=== PATIENT | male | born 1960 | race Caucasian/White ===

== ENCOUNTER 2019-07-25 12:01 | Emergency (ER) | payer SELFPAY ==
[~2019-07-25] VITALS: Ht 185.4 cm; Wt 81.6 kg
--- NOTE | 2019-07-25 12:20 | NUR ---
[id number], from the street, flu like symptoms x 3-4 days. DENIES PAIN. DENIES SOB, DIZZINESS, WEAKNESS, N/V. AOX4, VSS, RR EVEN AND UNLABORED. MADE COMFORTABLE AND READY FOR EVAL.
[2019-07-25] MEDS ORDERED: IBUPROFEN 400 MG TABLET ONE (12:28)
[2019-07-25] MEDS ORDERED: ACETAMINOPHEN ES 500 MG TABLET ONE (12:28)
[2019-07-25] MEDS ORDERED: IBUPROFEN 400 MG TABLET PO ONE (12:30)
[2019-07-25] MEDS ORDERED: ACETAMINOPHEN ES 500 MG TABLET PO ONE (12:30)
--- NOTE | 2019-07-25 13:48 | NUR ---
Patient is resting comfortably in bed with eyes closed. Easily aroused. VSS
--- NOTE | 2019-07-25 14:35 | NUR ---
Patient discharged to home in stable condition. Written and verbal after care instructions given. Patient verbalizes understanding of instruction.
--- NOTE | 2019-07-25 14:38 | NUR ---
PT ACTING ERRATICALLY, KNOCKING OVER WHEELCHAIR, YELLING AND CURSING AT STAFF. CODE GOMES ACTIVATED
--- NOTE | 2019-07-25 14:45 | NUR ---
PT ESCORTED OUT WITHOUT INCIDENT
[2019-07-25 14:51] VITALS: BP 138/76
== END 2019-07-25 14:52 | disposition home or self-care (01) ==
LOC: ER 12:03
DX: J11.1 Influenza due to unidentified influenza virus with other respiratory manifestations (principal); Z59.0 Homelessness